=== PATIENT | female | born 1980 | race Caucasian/White ===

== ENCOUNTER 2016-04-22 09:44 | Emergency (ER) | payer BC ==
[2016-04-22 09:57] VITALS: BP 111/66
--- NOTE | 2016-04-22 10:10 | UC ---
Throat Pain/Nasal [place] HPI - HPI Summary HPI Summary: Had very mild "pinchy" ST for a couple days, then dtr dx with strep yesterday and ST dramatically worsened last night. L>R, radiation to L ear. Denies fever, vomiting, or rash. - History of Current Complaint Chief Complaint: UCGeneralIllness Stated Complaint: SORE THROAT Time Seen by Provider: 04/22/16 09:54 Hx Obtained From: Patient Hx Last Menstrual Period: 03/30/16 ?: No Onset/Duration: Gradual Onset, Lasting Days Severity: Moderate Cough: Nonproductive - "leftover from a recent cold" Associated Signs & Symptoms: Positive: Wheezing. Negative: Fever, Vomiting, Rash - Allergies/Home Medications Allergies/Adverse Reactions: Allergies Allergy/AdvReac Type Severity Reaction Status Date / Time No Known Allergies Allergy Verified 09/15/13 07:21 Home Medications: Home Medications traZODone TAB* [Desyrel TAB*] 100 PRN 04/22/16 [History] PMH/Surg Hx/FS Hx/Imm Hx Respiratory History Of: Reports: Asthma - smoke induced - Surgical History Surgical History: Yes Surgery Procedure, Year, and Place: 2 C-sections - Family History Known Family History: Negative: Blood Disorder - Social History Alcohol Use: Occasionally Substance Use Type: None Smoking Status (MU): Current Every Day Smoker Type: Cigarettes Amount Used/How Often: 1/2 ppd Have You Smoked in the Last Year: Yes Household Exposure Type: Cigarettes Review of Systems Constitutional: Negative Skin: Negative Eyes: Negative ENT: Sore Throat Respiratory: Cough Cardiovascular: Negative Gastrointestinal: Negative Genitourinary: Negative Motor: Negative Neurovascular: Negative Musculoskeletal: Negative Neurological: Negative Psychological: Negative All Other Systems Reviewed And Are Negative: Yes Physical Exam Triage Information Reviewed: Yes Appearance: Well-Appearing, No Pain Distress, Well-Nourished Vital Signs: Initial Vital Signs Temp 98.7 F 04/22/16 09:53 Pulse 89 04/22/16 09:53 Resp 18 04/22/16 09:53 BP 111/66 04/22/16 09:53 Pulse Ox 96 04/22/16 09:53 Vital Signs Reviewed: Yes Eye Exam: Normal, Other - PERRL Eyes: Positive: Conjunctiva Clear ENT: Positive: Hearing grossly normal, Pharyngeal erythema - L>R, TMs normal. Negative: Nasal drainage, Tonsillar exudate Dental Exam: Normal Neck: Positive: Tenderness @ - L>R, Enlarged Nodes @ - tonsillar Respiratory: Positive: No respiratory distress, No accessory muscle use, Wheezing, Expiration Cardiovascular Exam: Normal Cardiovascular: Positive: RRR, No Murmur Musculoskeletal Exam: Normal Neurological Exam: Normal Psychological Exam: Normal Skin Exam: Normal Throat Pain/Nasal Course/Dx - Differential Dx/Diagnosis Provider Diagnoses: strep pharyngitis Discharge - Discharge Plan Condition: Stable Disposition: HOME Prescriptions: Amoxicillin (*) 875 mg PO BID #20 tab Patient Education Materials: Pharyngitis (ED) Referrals: Sergey Rudolph MD [Primary Care Provider] - Additional Instructions: See your primary care provider or return here if symptoms persist longer than 5 days from today.
== END 2016-04-22 10:22 | disposition home or self-care (01) ==
LOC: UCCORT 09:44
DX: J02.0 Streptococcal pharyngitis (principal); F17.210 Nicotine dependence, cigarettes, uncomplicated
CPT/HCPCS: 99212; G0463